=== PATIENT | male | born 1990 | race Caucasian/White ===

== ENCOUNTER → 2018-08-25 | Day surgery (SDC) | payer OTHER ==
[~2018-08-25] MED LIST: FENTANYL CITRATE/PF 100MCG/2 ML INJ ONE; LIDOCAINE HCL 2% LOCAL INJ 5 ML SDV VIAL INJ ONE; METOCLOPRAMIDE HCL 10 MG/2ML VIAL ONE; MIDAZOLAM HCL 2 MG/2 ML VIAL ONE; PROPOFOL IV EMULSION 10 MG/ML 50 ML VIAL ONE
--- NOTE | 2018-08-26 01:41 | Operative Report ---
DATE OF PROCEDURE: 08/25/2018 SURGEON: Rickie Onofre MD PROCEDURE: Esophagogastroduodenoscopy with biopsies. INDICATION FOR EGD: Upper abdominal pain, history of nausea and vomiting. MEDICATION: The patient was done under MAC. Please see anesthesiologist's note. PROCEDURE IN DETAIL: With the patient in the left lateral decubitus position, the flexible fiberoptic Olympus gastroscope was introduced into the esophagus under direct visualization without any difficulty. There was some longitudinal furrows and concentric rings were noted in the esophagus highly suspicious for eosinophilic esophagitis and biopsies were obtained from the proximal as well as the distal esophagus. The scope was then advanced with ease into the stomach. Mucosa overlying the antrum and the body revealed some patchy erythema and low-grade edema. Biopsies were obtained and sent to stain for Helicobacter pylori. Hyperplastic appearing polyps were noted in the body of the stomach and somewhat partially excised with cold biopsy forceps. The pylorus was of normal contour and shape, was intubated with ease and the scope was advanced all the way to the 2nd portion of the duodenum. Biopsies were obtained from the proximal 2nd portion to rule out sprue. There was prominent nodularity noted along the posterior wall of the duodenal bulb and biopsies were obtained. The scope was then withdrawn back into the stomach and retroflexed, mucosa overlying the fundus and the cardia appeared to be within normal limits. The scope was then straightened out and it was subsequently withdrawn. The patient tolerated the procedure well. IMPRESSION: 1. Rule out eosinophilic esophagitis. 2. Gastritis, biopsied. Biopsies sent to stain for Helicobacter pylori. 3. Gastric polyp, partially excised with cold biopsy forceps. 4. Duodenal bulb, nodular, biopsies obtained. 5. Rule out sprue. PLAN: Follow up pathology. Increase Dexilant to 60 mg one p.o. a.c. b.i.d. If no better in 1 week, we will initiate gallbladder workup. Rickie Onofre MD [facility] [place] /[id number] cc: Jimbo Smith MD
== END | disposition home or self-care (01) ==
LOC: OR 13:09
PROVIDERS: ATTEND Internal Medicine Gastroenterology
DX: K29.70 Gastritis, unspecified, without bleeding (principal); K31.7 Polyp of stomach and duodenum; Q40.8 Other specified congenital malformations of upper alimentary tract; K20.9 Esophagitis, unspecified; K21.9 Gastro-esophageal reflux disease without esophagitis; K59.09 Other constipation; J45.909 Unspecified asthma, uncomplicated; F41.9 Anxiety disorder, unspecified; Z88.0 Allergy status to penicillin; Z80.0 Family history of malignant neoplasm of digestive organs
CPT/HCPCS: 43239; J2001; J2250; J2704; J2765

== ENCOUNTER → 2022-02-10 | Outpatient (CLI) | payer OTHER | LOC: US 09:43 | PROVIDERS: ATTEND Internal Medicine Gastroenterology | DX: R10.10 Upper abdominal pain, unspecified (principal); K59.09 Other constipation; K92.1 Melena | CPT/HCPCS: 76700 ==